=== PATIENT | female | born 1950 | race Caucasian/White ===

== ENCOUNTER 2016-11-07 14:37 | Emergency (ER) | payer MEDICARE, OTHER | END 2016-11-07 16:33 | disposition home or self-care (01) | LOC: ER 14:37 | DX: J44.0 Chronic obstructive pulmonary disease with (acute) lower respiratory infection (principal); J20.9 Acute bronchitis, unspecified; E11.9 Type 2 diabetes mellitus without complications; I10 Essential (primary) hypertension; F17.210 Nicotine dependence, cigarettes, uncomplicated; Z79.899 Other long term (current) drug therapy; Z88.0 Allergy status to penicillin; Z88.5 Allergy status to narcotic agent; Z99.81 Dependence on supplemental oxygen | CPT/HCPCS: 36415; 87502; 94640; 96374 ==